=== PATIENT | male | born 1980 | race African-American/Black ===

== ENCOUNTER → 2018-05-16 | Outpatient (CLI) | payer BC | LOC: COL.RAD 13:15 | DX: M51.16 Intervertebral disc disorders with radiculopathy, lumbar region (principal) ==

== ENCOUNTER 2019-03-21 08:22 | Emergency (ER) | payer BC ==
[~2019-03-21] VITALS: Ht 172.7 cm; Wt 147.7 kg
[2019-03-21 09:00] LABS: BASO % 0.7 % (0.0-2.0); EOS # 0.1 (0.0-0.7); EOS % 2.1 % (0-4.0); GRAN # 2.2 (1.4-6.5); GRAN % 39.4 % (42.2-75.2); HEMOGLOBIN 14.6 g/dl (13.5-18.0); LYMPH # 2.5 (1.2-3.4); LYMPH % 43.3 % (20.0-51.0); MEAN CELL VOLUME 88 fl (80.0-100.0); MEAN CORPUSCULAR HEMOGLOBIN 29 pg (27.0-31.0); MEAN CORPUSCULAR HGB CONC 33 g/dl (33.0-37.0); MEAN PLATELET VOLUME 8.3 fl (7.4-10.4); MONO # 0.8 (0.1-0.6); PLATELET COUNT 333 K/mm3 (130-400); RED BLOOD COUNT 4.99 M/mm3 (4.20-5.60)
[2019-03-21 09:12] LABS: ALANINE AMINOTRANSFERASE 35 U/L (21-72); ALBUMIN 4.4 gm/dL (3.5-5.0); ALKALINE PHOSPHATASE 67 U/L (50-136); ANION GAP 8 mmol/L (7-16); AST,SGOT 33 U/L (15-37); BILIRUBIN,TOTAL 0.4 mg/dL (0.0-1.0); BLOOD UREA NITROGEN 9 mg/dL (9-20); CALCIUM 9.2 mg/dL (8.4-10.2); CARBON DIOXIDE 29 mmol/L (22-30); CHLORIDE 103 mmol/L (98-107); CREATININE, serum 0.87 (0.66-1.25); GLUCOSE 97 mg/dL (74-106); LIPASE 135 U/L (23-300); POTASSIUM 4.3 mmol/L (3.4-5.0); SODIUM 140 mmol/L (137-145)
[2019-03-21] MEDS ORDERED: ZANTAC 300300 MG PO (09:16)
[2019-03-21] MEDS ORDERED: FLEXERIL 1010 MG/TAB PO (09:20)
[2019-03-21 09:23] LABS: TROPONIN-I < 0.012 ng/mL (0.000-0.035)
[2019-03-21] MEDS ORDERED: LIDODERM 5% PATC1 EA TP (11:05)
[2019-03-21] MEDS ORDERED: PREDNISONE20 MG PO (11:05)
[2019-03-21 11:40] VITALS: BP 127/79; PULSE 84; TEMP 98.1
== END 2019-03-21 11:45 | disposition home or self-care (01) ==
LOC: COL.ER 08:22
PROVIDERS: Emergency Medicine
DX: M54.6 Pain in thoracic spine (principal); I10 Essential (primary) hypertension
CPT/HCPCS: J2270; J7512; Q9967